=== PATIENT | female | born 2005 | race Caucasian/White ===

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

== ENCOUNTER 2024-01-01 22:32 | Emergency (ER) | payer OTHER ==
[~2024-01-01] VITALS: Ht 182.9 cm; Wt 85.0 kg
[2024-01-01] MEDS ORDERED: SODIUM CHLORIDE 0.9% 1,000 ML IV ONE (22:45)
[2024-01-01] MEDS ORDERED: FAMOTIDINE 20 MG/ 2 ML VIAL IV ONE (22:45)
[2024-01-01] MEDS ORDERED: ondansetron HCL 4 MG/2 ML VIAL IV ONE (22:45)
[2024-01-01] MEDS ORDERED: CEFTRIAXONE/SODIUM CHLORIDE 2 GM/100 ML PIGGYBACK IV ONE (22:45)
[2024-01-01 22:57] LABS: BASOPHILS 0.4 % (0-2); HEMATOCRIT 37.2 % (35.0-50.0); HEMOGLOBIN 12.1 g/dL (12.0-18.0); LYMPHOCYTES 23.3 % (24-44); MCH 26.7 (27-36); MCHC 32.4 g/dl (30-36); MCV 82.4 fl (81-99); MONOCYTES 9.3 % (0-12); PLATELET COUNT 225 K/uL (140-440); RBC 4.52 M/ul (4.3-5.7); RDW 15.2 (10.5-15.0)
[2024-01-01] MEDS ORDERED: ACETAMINOPHEN 500 MG TAB PO ONE (23:00)
[2024-01-01 23:11] LABS: ALBUMIN 3.4 g/dL (3.4-5.0); ALBUMIN/GLOBULIN RATIO 0.87 (1.1-2.4); ANION GAP 16.6 (7-21); BILIRUBIN, TOTAL 0.3 ng/dL (0.2-1.0); BUN/CREATININE RATIO 8.49 (6.0-28.6); CALCIUM 8.3 mg/dL (8.5-10.1); CREATININE, SERUM 1.06 mg/dL (0.55-1.02); POTASSIUM 3.6 mmol/L (3.5-5.1); PROTEIN, TOTAL 7.3 g/dL (6.4-8.2)
[2024-01-01 23:15] LABS: LACTIC ACID, BLOOD 1.4 mmol/L (0.4-2.0)
[2024-01-01 23:41] LABS: INFLUENZA B NAA NEGATIVE (NEGATIVE); RESPIRATORY SYNCYTIAL VIR NAA NEGATIVE (NEGATIVE)
[2024-01-02 00:41] LABS: BILIRUBIN, URINE NEGATIVE (negative); BLOOD/HGB, URINE NEGATIVE (Negative); KETONE, URINE NEGATIVE (Negative); LEUK ESTERASE, URINE MODERATE (negative); NITRITE, URINE NEGATIVE (negative); PH, URINE 6.5 (5-7)
[2024-01-02 00:45] LABS: EPITHELIAL CELLS, URINE SQUAMOUS 1+ /lpf (0-1+)
[2024-01-02 00:46] LABS: BACTERIA, URINE 1+ /hpf (negative); CASTS, URINE NONE SEEN \\lpf; COLLECTION TYPE, URINE CLEAN CATCH; CRYSTALS, URINE NONE SEEN (0-1+); REFLEX CULTURE, URINE Yes (No); WHITE BLOOD CELLS, URINE >50 /HPF (0-5)
[2024-01-02] MEDS ORDERED: ONDANSETRON ODT4 MG PO (00:53)
[2024-01-02] MEDS ORDERED: MACROBID 100 M100 MG PO (00:53)
[2024-01-02 00:55] LABS: AMPHETAMINES, URINE NEGATIVE (NEGATIVE); BARBITURATES, URINE NEGATIVE (NEGATIVE); BENZODIAZEPINE, URINE NEGATIVE (NEGATIVE); BUPRENORPHINE, URINE NEGATIVE (NEGATIVE); CANNABINOID, URINE NEGATIVE (NEGATIVE); COCAINE, URINE NEGATIVE (NEGATIVE); ECSTASY, URINE NEGATIVE (NEGATIVE); FENTANYL, URINE NEGATIVE (NEGATIVE); METHADONE, URINE NEGATIVE (NEGATIVE); OPIATES, URINE NEGATIVE (NEGATIVE); OXYCODONE, URINE NEGATIVE (NEGATIVE); PHENCYCLIDINE, URINE NEGATIVE (NEGATIVE)
[2024-01-02 01:00] VITALS: BP 101/73
[2024-01-02] MEDS ORDERED: ONDANSETRON 4 MG HOME.PACK SL ONE (01:00)
== END 2024-01-02 01:00 | disposition home or self-care (01) ==
LOC: ED 22:32
PROVIDERS: Internal Medicine
DX: O86.20 Urinary tract infection following delivery, unspecified (principal); N39.0 Urinary tract infection, site not specified
CPT/HCPCS: 36415; 51701; 71045; 80053; 80307; 81001; 83605; 84703; 85025; 87040; 87088; 87502; 87651; 99284-25; A9270; J0696; J2405; J7030; U0002